=== PATIENT | male | born 1985 | race Caucasian/White ===

== ENCOUNTER 2020-10-08 07:01 | Outpatient (REF) | payer OTHER, SELFPAY ==
[2020-10-08 11:54] LABS: Anion Gap 12 (12-20); Blood Urea Nitrogen 14 mg/dL (9-16); Calcium 9.2 mg/dL (8.4-10.2); Carbon Dioxide 27 mmol/L (22-29); Chloride 106 mmol/L (96-108); Cholesterol 208 mg/dL; Estimated Glomerular Filt Rate > 60; Glucose Fasting 74 mg/dL (60-99); HDL Cholesterol 48 mg/dL; LDL Cholesterol Calculated 145 mg/dl; Potassium 3.8 mmol/L (3.3-5.1); Sodium 141 mmol/L (135-145); Triglycerides 77 mg/dL
== END 2020-10-08 07:02 | disposition home or self-care (01) ==
LOC: HO.HMGCLDS 07:01
PROVIDERS: PCP Internal Medicine; Visit Provider Internal Medicine
DX: Z00.00 Encounter for general adult medical examination without abnormal findings (principal); I10 Essential (primary) hypertension
CPT/HCPCS: 36415; 80048; 80061

== ENCOUNTER 2021-10-14 07:09 | Outpatient (REF) | payer OTHER, SELFPAY ==
[2021-10-14 11:27] LABS: MANUAL DIFF FLAG NO
[2021-10-14 11:37] LABS: Basophils Absolute Auto 0.1 X10*3/uL (0.0-0.2); Basophils Percent Auto 0.7 % (0-2); Eosinophils Absolute Auto 0.1 X10*3/uL (0.0-0.4); Eosinophils Percent Auto 1.6 % (0-4); Hemoglobin 15.8 g/dl (14.0-18.0); Imm Gran Abs Auto 0.03 X10*3/uL (0.00-0.03); Imm Gran Pct Auto 0.4 % (0.0-0.4); Lymphocytes Absolute Auto 2.5 X10*3/uL (1.2-4.9); Mean Corpuscular HGB Conc 33.6 g/dl (31.0-36.0); Mean Corpuscular Hemoglobin 29.4 pg (27.0-33.0); Mean Corpuscular Volume 87.5 fL (80.0-98.0); Mean Platelet Volume 10.9 fL (9.4-12.4); Monocytes Absolute Auto 0.7 X10*3/uL (0.1-1.2); Monocytes Percent Auto 9.6 % (2-11); Neutrophils Absolute Auto 3.5 x10*3/uL (2.0-8.3); Neutrophils Percent Auto 51.7 % (45-73); Platelet Count 235 X10*3/uL (160-400); Red Blood Count 5.37 X10*6/uL (4.60-5.80); Red Cell Distribution Width 12.6 % (11.0-16.0); White Blood Count 6.8 X10*3/uL (4.8-10.8)
[2021-10-14 11:55] LABS: Alanine Aminotransferase 79 U/L (0-40); Anion Gap 11 (12-20); Aspartate Amino Transferase 38 U/L (5-37); Blood Urea Nitrogen 13 mg/dL (9-16); Calcium 9.9 mg/dL (8.4-10.2); Carbon Dioxide 29 mmol/L (22-29); Chloride 102 mmol/L (96-108); Cholesterol 225 mg/dL; Estimated Glomerular Filt Rate > 60; Glucose Fasting 82 mg/dL (60-99); HDL Cholesterol 41 mg/dL; LDL Cholesterol Calculated 125 mg/dl; Potassium 4.1 mmol/L (3.3-5.1); Sodium 138 mmol/L (135-145); Triglycerides 296 mg/dL
[2021-10-14 12:17] LABS: Vitamin D 25-OH Total 15.4 ng/mL (>30)
== END 2021-10-14 07:10 | disposition home or self-care (01) ==
LOC: HO.HMGCLDS 07:09
PROVIDERS: Visit Provider Internal Medicine
DX: Z00.01 Encounter for general adult medical examination with abnormal findings (principal); Z13.220 Encounter for screening for lipoid disorders; Z87.898 Personal history of other specified conditions
CPT/HCPCS: 36415; 80048; 80061; 82306; 84450; 84460; 85025

== ENCOUNTER 2022-06-29 13:59 | Outpatient (REF) | payer OTHER, SELFPAY ==
[2022-06-29 14:25] LABS: Appearance Urine Cloudy; Color Urine Dark Yellow; Glucose Urine UA Negative (Negative); Leukocyte Esterase Urine Negative (Negative); Nitrite Urine Negative (Negative); PH 7.5 (5.0-9.0); UMIC TRIGGER UACC YES; Urine Blood Negative (Negative); Urine Ketones Trace mg/dL (Negative); Urine Protein 30 (1+) mg/dL (Neg-Trace)
[2022-06-29 14:48] LABS: Bacteria Urine None Seen (None Seen); Hyaline Casts Urine 0-2 /LPF (0-2); Specific Gravity - Urine >= 1.030 (1.005-1.025); Squamous Epithelial Cell Urine 0-2 /HPF (0-2); WBC Urine 0-5 /HPF (0-5)
[2022-06-29 16:04] LABS: CT PCR NOT DETECTED (Not Detect.); NG PCR NOT DETECTED (Not Detect.)
== END 2022-06-29 14:00 | disposition home or self-care (01) ==
LOC: HO.LNP 13:59
PROVIDERS: Visit Provider Nurse Practitioner Family
DX: R30.0 Dysuria (principal)
CPT/HCPCS: 0353U; 81001

== ENCOUNTER 2023-04-23 09:35 | Outpatient (AMB) | payer OTHER, SELFPAY ==
--- NOTE | 2023-04-23 10:35 | AM.OFFWIN_ITS ---
Intake Vital Signs 04/23/23 10:36 Height 5 ft 5 in Weight 160 lb BMI 26.6 BP 118/74 Blood Pressure Location Rt brachial Position Sitting Pulse 88 Pulse Source Pulse Oximeter Temp 97.8 F Temp Source Temporal Artery Scan Pulse Oximetry (%) 98 Oxygen Delivery Method Room Air Intake Visit Reasons: EST/feet fungus(lobby) Intake Note: pt is here for c/o feet fungus Patient Tobacco Use Status: Never used Tobacco Allergies pollen extracts [POLLEN] Allergy (Unknown, Verified 04/23/23 10:36) ITCHY EYES Do you need a note to return to daycare/school/sports/work: Yes HPI HPI Comments History of Present Illness Details This is a 38-year-old male who presents to the office today for sick visit. Patient complaining of a rash on his feet. He states he had a similar rash in December 2022 and he was treated for tinea pedis with ketoconazole cream. He states that this cream worked. Patient started to notice a similar rash on his feet about 1 month ago after running and wet shoes. He denies any pruritis. [facility] Medical History Immunization refused Shoulder strain Surgical History No pertinent past surgical history Family History Father Arthralgia Social History Housing: House Alcohol intake: current Patient Tobacco Use Status: Never used Tobacco e-Cigarette/Vaping Use: Never Used service: No Current occupational status: employed Cognitive needs: No Hearing needs: No Vision needs: No Review of Systems Const All systems reviewed & are unremarkable except as noted in HPI and below Reports no additional complaints Eyes Reports no additional complaints ENT Reports no additional complaints Card Reports no additional complaints Resp Reports no additional complaints GI Reports no additional complaints Reports no additional complaints Musc Reports no additional complaints Skin/Breast Reports system reviewed and no additional complaints, except as documented Neuro Reports no additional complaints Psych Reports no additional complaints Endo Reports no additional complaints Charlie/Lymph Reports no additional complaints Aller/Immun Reports no additional complaints Physical Exam Vital Signs: Last Vital Signs Temp 97.8 F 04/23/23 10:36 Pulse 88 11/17/23 10:36 BP 118/74 04/23/23 10:36 Pulse Ox 98 04/23/23 10:36 Oxygen Delivery Method Room Air 04/23/23 10:36 BMI result Body Mass Index 26.6 Const Other: Vital signs reviewed. Constitutional: Non-toxic appearing. No acute distress. Well-developed and well-nourished. HEENT: Normocephalic and atraumatic. Skin: Several annular plaques with scaling on bilateral feet. Neck: Full and painless range of motion. No cervical lymphadenopathy. Cardio: Regular rate and rhythm. Pulmonary: No respiratory distress. No accessory muscle usage. Gastrointestinal: Soft, nontender, and nondistended in all 4 quadrants. Musculoskeletal: Normal range of motion in joints throughout the body. No deformity or other signs of injury. Neuro: Alert and oriented x4. Cranial nerves 2-12 grossly intact. No focal deficits appreciated. Psych: Normal mood and affect. Assessment & Plan Assessment & Plan (1) Tinea pedis: Code(s): B35.3 - Tinea pedis Plan: This is a 38-year-old male with history of tinea pedis presented to the office complaining of a similar rash on bilateral feet after running in what she was. On physical examination there are several annular scaly plaques consistent with tinea pedis/corporis. Patient sent home on ketoconazole 2% cream twice daily x4 weeks. Patient advised to follow-up here for persistent or worsening symptoms. Patient verbalizes understanding and he is in agreement with the plan. Medications: New ketoconazole 2% 1 appl topical BID 30 grams 0RF 4 weeks Coding Level of Care Code Est Pt Level 3 (63441) Diagnoses Tinea pedis B35.3
[2023-04-23 10:36] VITALS: BP 118/74; PULSE 88; TEMP 36.6; O2SAT 98; BMI 26.6
== END 2023-04-23 11:25 | disposition home or self-care (01) ==
PROVIDERS: PCP Internal Medicine; Visit Provider Physician Assistant Medical
DX: B35.3 Tinea pedis (principal)
CPT/HCPCS: 99213

== ENCOUNTER 2023-07-24 12:03 | Outpatient (AMB) | payer OTHER, SELFPAY ==
--- NOTE | 2023-07-24 12:17 | AM.OFFWIN_ITS ---
Intake Vital Signs 07/24/23 12:18 Height 5 ft 5 in Weight 159 lb BMI 26.5 BP 102/70 Blood Pressure Location Lt brachial Position Sitting Pulse 89 Pulse Source Pulse Oximeter Temp 98.0 F Temp Source Oral Pulse Oximetry (%) 96 Oxygen Delivery Method Room Air Intake Visit Reasons: EP ?Foot Fungus Intake Note: Pt is here today c/o bilateral feet rash Patient Tobacco Use Status: Never used Tobacco Allergies pollen extracts [POLLEN] Allergy (Unknown, Verified 07/24/23 12:18) ITCHY EYES HPI HPI Comments History of Present Illness Details 38-year-old male who presents for foot r thalia He states he had a similar rash in December 2022 and he was treated for tinea pedis with ketoconazole cream. He states that this cream worked. Rashes since returned [facility] Medical History Immunization refused Shoulder strain Surgical History No pertinent past surgical history Family History Father Arthralgia Social History Housing: House Alcohol intake: current Patient Tobacco Use Status: Never used Tobacco e-Cigarette/Vaping Use: Never Used service: No Current occupational status: employed Cognitive needs: No Hearing needs: No Vision needs: No Review of Systems Skin/Breast Reports rash Physical Exam Vital Signs: Last Vital Signs Temp 98.0 F 07/24/23 12:18 Pulse 89 07/24/23 12:18 BP 102/70 07/24/23 12:18 Pulse Ox 96 07/24/23 12:18 Oxygen Delivery Method Room Air 07/24/23 12:18 BMI result Body Mass Index 26.5 Const General: cooperative, healthy appearing, no acute distress and alert Orientation/consciousness: patient oriented x3 Limitations: no limitations HEENT Head: Yes normal to inspection Ears: hearing grossly normal bilaterally General nose exam: Normal external nose present Resp Effort & Inspection: normal respiratory effort and able to speak in complete sentences Cardio Rate: regular rate Skin Other: Peeling of the lateral 3rd through 4th toe on the right foot similar on the left foot General skin exam: no rashes or lesions noted Neuro General: patient oriented x3 Extrem General: Yes normal to inspection Assessment & Plan Assessment & Plan (1) Tinea pedis: Code(s): B35.3 - Tinea pedis Qualifiers: Laterality: bilateral Qualified Code(s): B35.3 - Tinea pedis Plan: Ketoconazole cream b.i.d. Medications: New ketoconazole 2% 1 appl topical BID 30 grams 0RF Coding Level of Care Code Est Pt Level 2 (86130) Diagnoses Tinea pedis of both feet B35.3 Laterality: bilateral
[2023-07-24 12:18] VITALS: BP 102/70; PULSE 89; TEMP 36.7; O2SAT 96; BMI 26.5
== END 2023-07-24 12:48 | disposition home or self-care (01) ==
PROVIDERS: PCP Internal Medicine; Visit Provider Physician Assistant
DX: B35.3 Tinea pedis (principal)
CPT/HCPCS: 99051; 99212

== ENCOUNTER 2023-08-11 11:39 | Outpatient (AMB) | payer OTHER, SELFPAY ==
--- NOTE | 2023-08-11 12:19 | MHC.PC.OV ---
Vital Signs 08/11/23 12:21 Height 5 ft 5 in Weight 153 lb BMI 25.5 BP 120/70 Blood Pressure Location Rt brachial Position Sitting Pulse 78 Pulse Source Pulse Oximeter Pulse Oximetry (%) 98 Oxygen Delivery Method Room Air Intake Visit Reasons: Physical Intake Note: Pt is here today for his Annual Physical. Allergies pollen extracts [POLLEN] Allergy (Unknown, Verified 08/11/23 12:48) ITCHY EYES Medication List - Last Reconciled 08/11/23 by Tianna Callejas MD ketoconazole 2% 1 appl topical BID Tobacco use date assessed: 08/11/23 Dental Screening Dental Screen Date: 08/11/23 Did you have a dental visit in the last 12 months?: No Did you have a dental problem in the last 6 months where you did not have access to dental care?: No Was dental information given to patient?: No HPI Physical HPI Details 38-year-old male with history of vitamin-D deficiency, hypertriglyceridemia, and currently being treated for Tinea pedis , here today for his physical exam. Patient states that he has been feeling well, but still having some residual rash, nonpruritic on both feet. He has been diagnosed to have athlete's foot and has been using ketoconazole cream on and off for the last 3 months with almost complete resolution of lesions noted. He has been feeling well with no complaints at present time. However he does not want to have any vaccines nor does he want to get labs drawn on this visit. [facility] Medical History Hypertriglyceridemia Vitamin D deficiency Elevated liver enzymes Immunization refused Surgical History No pertinent past surgical history Family History Father Arthralgia Social History Housing: House Alcohol intake: current Patient Tobacco Use Status: Never used Tobacco e-Cigarette/Vaping Use: Never Used service: No Current occupational status: employed Cognitive needs: No Hearing needs: No Vision needs: No Questionnaire PHQ-9 Over the last 2 weeks, how often have you been bothered by any of the following problems? 1. Little interest or pleasure in doing things: not at all 2. Feeling down, depressed, or hopeless: not at all 3. Trouble falling or staying asleep, or sleeping too much: not at all 4. Feeling tired or having little energy: several days 5. Poor appetite or overeating: several days 6. Feeling bad about yourself - or that you are a failure or have let yourself or your family down: not at all 7. Trouble concentrating on things, such as reading the newspaper or watching television: not at all 8. Moving or speaking so slowly that other people could have noticed. Or the opposite - being so fidgety or restless that you have been moving around a lot more than usual: not at all 9. Thoughts that you would be better off or of hurting yourself in some way: not at all Total score: 2 Depression Screening Interpretation: Negative Depression Screening Done: Yes 19215 - PHQ-9 Billing: Yes Source: Developed by Drs. Bao Esteban, Shonna Houser, Jeremiah Childs and colleagues, with an educational anastasia from [employer]. Thrive Questionnaire Date Thrive assessed: 08/11/23 I am a: Patient What is your living situation today?: I have a steady place to live Within the past 12 months, did the food you bought not last and you didn't have the money to get more?: Never true Within the past 12 months, did you worry whether your food would run out before you got money to buy more?: Never true Do you have trouble paying for medicines?: No Do you have trouble getting transportation to medical appointments?: No Do you have trouble paying your heating and electricity bill?: No Do you have trouble taking care of your child, family member or friend?: No Do you have trouble with day-to-day activities such as bathing, preparing meals, shopping, managing finances, etc.?: No Are you currently unemployed and looking for a job?: No Are you interested in more education?: No THRIVE Score: 0 AUDIT C Alcohol Use Questionnaire (AUDIT-C) 1. How often do you have a drink containing alcohol?: Monthly or less 2. How many drinks containing alcohol do you have on a typical day when you are drinking?: 1 or 2 3. How often do you have six or more drinks on one occasion?: Never Total Score: 1 TIANNA-7 AMB Questionnaire TIANNA-7 Date TIANNA - 7 assessed: 08/11/23 Feeling nervous, anxious, or on edge: 1 = Several days Not being able to stop or control worryin = Not at all Worrying too much about different things: 1 = Several days Trouble relaxin = Not at all Being so restless that it is hard to sit still: 0 = Not at all Becoming easily annoyed or irritable: 0 = Not at all Feeling afraid as if something awful might happen: 3 = Nearly every day Total TIANNA-7 score (0-4 normal; 5-9 mild; 10-14 moderate; 15-21 severe): 5 Source: Developed by Drs. Bao Esteban, Shonna Houser, Jeremiah Childs and colleagues, with an educational anastasia from [employer]. TIANNA-7 Assessment Billing TIANNA-7 Assessment Tool: TIANNA-7 Assessment 41769 Review of Systems Const Denies body aches, Denies fatigue, Denies fever(s), Denies headache(s) and Denies weakness Eyes Denies change in vision ENT Denies dizziness, Denies headache(s) and Denies nasal congestion Card Denies chest pain, Denies lightheadedness, Denies palpitations and Denies dyspnea Resp Denies chest congestion, Denies cough, Denies dyspnea and Denies wheezing GI Denies abdominal pain, Denies change in bowel habits and Denies heartburn Denies dysuria, Denies urinary frequency and Denies urinary urgency Musc Reports no additional complaints Skin/Breast Denies lesions Neuro Denies dizziness, Denies headache(s) and Denies weakness Psych Reports no additional complaints Endo Denies fatigue, Denies polydipsia, Denies polyuria and Denies palpitations Charlie/Lymph Denies easy bruising Aller/Immun Denies seasonal rhinorrhea and Denies wheezing Physical exam (Primary Care) Vital Signs: Last Vital Signs Pulse 78 08/11/23 12:21 BP 120/70 08/11/23 12:21 Pulse Ox 98 08/11/23 12:21 Oxygen Delivery Method Room Air 08/11/23 12:21 BMI result Body Mass Index 25.5 Tobacco/Smoking Status: Tobacco use Status Tobacco use date assessed 08/11/23 08/11/23 12:24 Patient Tobacco Use Status Never used Tobacco 08/11/23 12:20 e-Cigarette/Vaping Use Never Used 08/11/23 12:20 PHQ-9: PHQ-9 Score PHQ-9: Total score 2 08/11/23 23:54 Depression Screening Interpretation: Negative Thrive Assessment: Date of Thrive Assessment Date Thrive assessed 08/11/23 08/11/23 23:54 Const General: comfortable and no acute distress Nutritional Appearance: average body habitus Orientation/consciousness: patient oriented x3 HENMT Head: Yes normocephalic Ears: external ears normal, TM's normal bilaterally and EAC's normal General nose exam: Normal external nose present Face and sinus: Yes face symmetric Mouth: Normal oral and palatal mucosa present, oropharynx normal and moist mucous membranes Teeth and gingiva: poor dentition Eyes General: appearance normal, both eyes and all related structures Neck Neck: Yes normal visual inspection, Yes full ROM, Yes no lymphadenopathy and Yes supple Chest Chest palpation & inspection: normal inspection of the chest Resp Effort & Inspection: normal respiratory effort and able to speak in complete sentences Auscultation: clear to auscultation bilaterally Cardio Rate: regular rate Rhythm: regular rhythm Heart sounds: S1 normal heart sound present, S2 normal heart sound present and Other heart sounds present GI Palpation (GI): Soft to palpation, nontender, no guarding and no masses Auscultation: normal bowel sounds General: Yes no CVA tenderness Male General Exam: Yes normal external exam Back/Spine/Pelvis Back: no CVA tenderness and No back tenderness Skin Other: Erythematous rash on lateral aspect of left foot and on 3rd toe on right Neuro General: patient oriented x3, gait normal, tone normal and no focal motor deficits Cranial nerves: Yes CN's II-XII intact bilaterally Cognition (Neuro): normal cognition Gait exam (Neuro): Normal gait present Extrem General: Yes full ROM, Yes no joint enlargement, Yes no clubbing, cyanosis or edema, Yes no calf tenderness and Yes normal gait Psych Appearance: grossly normal and well kempt Mental Status: mental status grossly normal Speech and movement: Normal speech and movement present Affect: Blunted affect present Assessment and Plan Assessment & Plan (1) Annual visit for general adult medical examination with abnormal findings: Code(s): Z00.01 - Encounter for general adult medical examination with abnormal findings Plan: Patient refused to labs at this time, advised to get dental visit every 6 months and regular eye exams, at least every 2 years. Take adequate calcium in diet and vitamin-D 3 at 2000 IU per cap once a day, in addition to weight-bearing exercises to help maintain good muscle tone and weight control. Instructed to do self-breast testicular exam to check for any mass. Patient does not want to get any vaccine (2) Elevated liver enzymes: Code(s): R74.8 - Abnormal levels of other serum enzymes Plan: Previous labs done a year ago showed mild elevation in his liver enzyme, advised to cut back on his alcohol intake. Declines to repeat labs at present time. (3) Vitamin D deficiency: Code(s): E55.9 - Vitamin D deficiency, unspecified Plan: Previous labs done a year ago showed low vitamin-D level, advised to start taking [id number] vitamin-D 3 at 2000 units once a day. 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, to remove residual fungus, and advised to spray shoes with Lotrimin antifungal spray (5) Hypertriglyceridemia: Code(s): E78.1 - Pure hyperglyceridemia Plan: Advised to follow a low-cholesterol diet, and get regular exercise (6) Immunization refused: Code(s): Z28.21 - Immunization not carried out because of patient refusal Coding Level of Care Code Est Pt Prev Care 18-39y(84130) Diagnoses Annual visit for general adult medical examination with abnormal findings Z00.01 Elevated liver enzymes R74.8 Vitamin D deficiency E55.9 Tinea pedis of both feet B35.3 Laterality: bilateral Hypertriglyceridemia E78.1 Immunization refused Z28.21 Additional Codes TIANNA-7 Assessment Billing - TIANNA-7 Assessment Tool: TIANNA-7 Assessment 86198 ([id number])
[2023-08-11 12:21] VITALS: BP 120/70; PULSE 78; O2SAT 98; BMI 25.5
== END 2023-08-11 14:13 | disposition home or self-care (01) ==
PROVIDERS: PCP Internal Medicine; Visit Provider Internal Medicine
DX: Z00.00 Encounter for general adult medical examination without abnormal findings (principal); R74.8 Abnormal levels of other serum enzymes; E55.9 Vitamin D deficiency, unspecified; B35.3 Tinea pedis; E78.1 Pure hyperglyceridemia; Z28.21 Immunization not carried out because of patient refusal
CPT/HCPCS: 99395

== ENCOUNTER 2024-05-02 10:11 | Outpatient (AMB) | payer BC, SELFPAY ==
--- NOTE | 2024-05-02 10:29 | MHC.OFFWIV ---
Intake Vital Signs 05/02/24 10:30 Weight 157 lb BP 130/80 Blood Pressure Location Rt brachial Position Sitting Pulse 90 Pulse Source Pulse Oximeter Pulse Oximetry (%) 98 Oxygen Delivery Method Room Air Intake Visit Reasons: EP-upper back itching Intake Note: Patient here for upper back spots that have bee inflammed for about 2 weeks. Patient Tobacco Use Status: Never used Tobacco Allergies pollen extracts [POLLEN] Allergy (Unknown, Verified 05/02/24 10:31) ITCHY EYES Do you need a note to return to daycare/school/sports/work: No HPI HPI Comments History of Present Illness Details 39 y/o male patient who presents to the walk in clinic with c/o rash on his back for few weeks now. Pt describes the rash as itchy. Pt has been applying a Steroid cream which has helped with itching. Pt was evaluated 2021 by his PCP for similar complain and was referred to Dermatology, but patient never got the appointment. [facility] Medical History Hypertriglyceridemia Vitamin D deficiency Elevated liver enzymes Immunization refused Surgical History No pertinent past surgical history Family History Father Arthralgia Social History Housing: House Alcohol intake: current Patient Tobacco Use Status: Never used Tobacco e-Cigarette/Vaping Use: Never Used service: No Current occupational status: employed Cognitive needs: No Hearing needs: No Vision needs: No Review of Systems Const All systems reviewed & are unremarkable except as noted in HPI and below Physical Exam Vital Signs: Last Vital Signs Pulse 90 05/02/24 10:30 BP 130/80 05/02/24 10:30 Pulse Ox 98 05/02/24 10:30 Oxygen Delivery Method Room Air 05/02/24 10:30 Const General: cooperative and no acute distress Orientation/consciousness: patient oriented x3 Limitations: language barrier Skin General skin exam: crusts, dry skin and erythema Full body images: 1. Small 2 lesions, crusting with erythematous edges. 2. Small 2 lesions, crusting with erythematous edges. Neuro General: patient oriented x3, gait normal and moves all extremities Psych Speech and movement: Normal speech and movement present Assessment & Plan Assessment & Plan (1) Rash and nonspecific skin eruption: Code(s): R21 - Rash and other nonspecific skin eruption Plan: Placed referral to [facility]. I also advised Pt to call them and schedule an appointment. Orders: Referrals Dermatology Referral R21 - Rash and other nonspecific skin eruption Coding Level of Care Code Est Pt Level 3 (42939) Diagnoses Rash and nonspecific skin eruption R21 Time Spent (min) 15
[2024-05-02 10:30] VITALS: BP 130/80; PULSE 90; O2SAT 98
== END 2024-05-02 13:33 | disposition home or self-care (01) ==
PROVIDERS: PCP Internal Medicine; Visit Provider Nurse Practitioner Family
DX: R21 Rash and other nonspecific skin eruption (principal)

== ENCOUNTER 2024-06-02 14:11 | Outpatient (AMB) | payer BC, SELFPAY ==
--- NOTE | 2024-06-02 15:19 | AM.OFFWIN_ITS ---
Intake Vital Signs 06/02/24 15:24 Weight 71.668 kg BP 140/100 H Blood Pressure Location Rt brachial Position Sitting Pulse 71 Pulse Source Pulse Oximeter Pulse Oximetry (%) 94 Oxygen Delivery Method Room Air Intake Visit Reasons: EP ?infection Intake Note: Patient here for infection on penis that has been present since Wednesday. Last sexually active in march. Patient Tobacco Use Status: Never used Tobacco Allergies pollen extracts [POLLEN] Allergy (Unknown, Verified 06/02/24 15:24) ITCHY EYES Do you need a note to return to daycare/school/sports/work: No HPI HPI Comments History of Present Illness Details 39 year old male presents w/ burning w/ urination, urinary frequency, urgency X few weeks. Had a rash on his penis but reports using a potassium cream that got rid of the rash. Some concern for STD last sexually active in march. Denies abd pain, n/v/d, fevers, chills. 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 [facility] [place] denies rash or lesiosn at this time no indication for sensative exam Plan- NGCT and UA will also test for syphillis due to recent rash [facility] Medical History Encounter for assessment of sexually transmitted disease exposure Hypertriglyceridemia Vitamin D deficiency Elevated liver enzymes Immunization refused Surgical History No pertinent past surgical history Family History Father Arthralgia Social History Housing: House Alcohol intake: current Patient Tobacco Use Status: Never used Tobacco e-Cigarette/Vaping Use: Never Used service: No Current occupational status: employed Cognitive needs: No Hearing needs: No Vision needs: No Review of Systems Const All systems reviewed & are unremarkable except as noted in HPI and below Physical Exam Vital Signs: Last Vital Signs Pulse 71 06/02/24 15:24 BP 140/100 H 06/02/24 15:24 Pulse Ox 94 06/02/24 15:24 Oxygen Delivery Method Room Air 12/27/24 15:24 vss Appearance: Alert.? Oriented X3.? No acute distress.? Head: Normocephalic, atraumatic, no step-offs or deformities Eyes: Pupils equal, round and reactive to light.? CVS: Normal heart rate and rhythm.? Pulses normal.? Respiratory: No respiratory distress.? Breath sounds normal.? Abdomen: Soft and nontender.? Skin: Skin warm and dry.? Normal skin color.? Normal skin turgor.? Extremities: No lower extremity edema.? No calf ttp. 5/5 strength to bilateral upper and lower extremities Back: No midline tenderness, no C-spine tenderness, full range of motion, no CVA tenderness bilaterally Neuro: Oriented X 3.? No motor deficit.? No sensory deficit. CN 2-12 intact Sensative exam: deffered Assessment & Plan Assessment & Plan (1) Screen for STD (sexually transmitted disease): Code(s): Z11.3 - Encounter for screening for infections with a predominantly sexual mode of transmission (2) Dysuria: Code(s): R30.0 - Dysuria Plan Take your medications as prescribed. If you were prescribed antibiotics today, it is important that you take your medication to their entirety, do not skip any doses, do not finish them early. Follow-up with your primary care provider this week. Return to the emergency department with new or worsening symptoms. In case of emergency call 911 Orders: Orders AMB Ceftriaxone Injection Today Z20.2 - Contact with and (suspected) exposure to infections with a predominantly sexual mode of transmission Syphilis Screen Today Z11.3 - Encounter for screening for infections with a predominantly sexual mode of transmission CT NG by PCR Today Z20.2 - Contact with and (suspected) exposure to infections with a predominantly sexual mode of transmission Medications: New ceftriaxone 500 mg IM ONCE 1 ea 0RF Z20.2 - Contact with and (suspected) exposure to infections with a predominantly sexual mode of transmission doxycycline hyclate 100 mg PO BID 7 days 14 caps 0RF Coding Level of Care Code Est Pt Level 3 (44540) Diagnoses Screen for STD (sexually transmitted disease) Z11.3 Dysuria R30.0
[2024-06-02 15:24] VITALS: BP 140/100; PULSE 71; O2SAT 94
== END 2024-06-02 15:40 | disposition home or self-care (01) ==
PROVIDERS: PCP Internal Medicine; Visit Provider Physician Assistant
DX: R30.0 Dysuria (principal); Z11.3 Encounter for screening for infections with a predominantly sexual mode of transmission; Z20.2 Contact with and (suspected) exposure to infections with a predominantly sexual mode of transmission

== ENCOUNTER 2024-06-02 14:11 | Outpatient (REF) | payer BC, SELFPAY ==
[2024-06-03 14:49] LABS: CT PCR NOT DETECTED (Not Detect.); NG PCR NOT DETECTED (Not Detect.)
== END 2024-06-02 14:12 | disposition home or self-care (01) ==
LOC: HO.LNP 14:11
PROVIDERS: PCP Internal Medicine; Visit Provider Physician Assistant
DX: R30.0 Dysuria (principal); R35.0 Frequency of micturition; Z20.2 Contact with and (suspected) exposure to infections with a predominantly sexual mode of transmission
CPT/HCPCS: 81003; 87491; 87591; 96372; J0696

== ENCOUNTER 2024-06-03 12:55 | Outpatient (REF) | payer BC, SELFPAY | END 2024-06-03 12:56 | disposition home or self-care (01) | LOC: HO.LAB 12:55 | PROVIDERS: Visit Provider Physician Assistant | DX: Z13.89 Encounter for screening for other disorder (principal) ==

== ENCOUNTER 2024-06-28 10:06 | Outpatient (REF) | payer BC, SELFPAY ==
--- NOTE | ~2024-06-28 | XR_ITS ---
EXAMINATION: XR RIBS, RIGHT. Chest PA. 5 views. CLINICAL INFORMATION: W19.XXXA - Unspecified fall, initial encounter COMPARISON: None available. TECHNIQUE: 5 views of the right ribs were obtained. FINDINGS: The lungs are well-expanded and clear of acute process. The heart size and pulmonary vascularity is normal. Multiple views of right ribs reveal no visible fracture or bony abnormality. There is no pleural effusion or pneumothorax. XR/XR ribs RT min 3V w CXR1V IMPRESSION: Unremarkable chest exam. There is no visible right rib fractures seen. Electronically signed by: Jim Campa MD 06/28/2024 11:39 AM [facility]
== END 2024-06-28 10:07 | disposition home or self-care (01) ==
LOC: HO.HMGCX 10:06
PROVIDERS: PCP Internal Medicine; Visit Provider Physician Assistant
DX: R07.81 Pleurodynia (principal); W19.XXXA Unspecified fall, initial encounter
CPT/HCPCS: 71101

== ENCOUNTER 2024-06-28 10:06 | Outpatient (AMB) | payer BC, SELFPAY ==
--- NOTE | 2024-06-28 10:24 | AM.OFFWIN_ITS ---
Intake Vital Signs 06/28/24 10:26 Weight 157 lb BP 122/90 H Blood Pressure Location Rt brachial Position Sitting Pulse 89 Pulse Source Pulse Oximeter Pulse Oximetry (%) 97 Oxygen Delivery Method Room Air Intake Visit Reasons: EP fall, rib pain Intake Note: Patient here for right rib pain after a fall at work yesterday. Patient Tobacco Use Status: Never used Tobacco Allergies pollen extracts [POLLEN] Allergy (Unknown, Verified 06/28/24 10:26) ITCHY EYES Do you need a note to return to daycare/school/sports/work: Yes HPI HPI Comments History of Present Illness Details History of Present Illness - The patient is a 39-year-old male pres enting with a fall on the right side yesterday at work on his right side. - The incident occurred when the patient slipped on ice, and he heard a crunch sound near his right side ribs suggestive of a fracture. - Reports increased pain upon deep breat matt, but no severe respiratory issues are noted. - Tenderness is specifically noted on th e right side where the impact occurred. - Has used ice without much relief. Physical Exam General: Cooperative, healthy appearing, comfortable, no acute distress and well developed Orientation: Patient oriented x3 Limitations: No limitations Head: Normal to inspection Ears: Hearing grossly normal bilaterally Nose: Normal external nose present Face and sinus: Normal facial exam Eyes: Appearance normal, both eyes and all related structures Neck: Normal visual inspection and Yes full ROM Chest: TTP right sided lateral ribs, mid axillary line Respiratory: Normal respiratory effort and able to speak in complete sentences. Clear to auscultation bilaterally Cardiovascular: Regular rate and rhythm. Normal S1 and S2 Skin: No rashes or lesions noted Neuro: Patient oriented x3 Extremities: Normal to inspection [facility] Medical History Encounter for assessment of sexually transmitted disease exposure Hypertriglyceridemia Vitamin D deficiency Elevated liver enzymes Immunization refused Surgical History No pertinent past surgical history Family History Father Arthralgia Social History Housing: House Alcohol intake: current Patient Tobacco Use Status: Never used Tobacco e-Cigarette/Vaping Use: Never Used service: No Current occupational status: employed Cognitive needs: No Hearing needs: No Vision needs: No Review of Systems Const All systems reviewed & are unremarkable except as noted in HPI and below Physical Exam Vital Signs: Last Vital Signs Pulse 89 06/28/24 10:26 BP 122/90 H 06/28/24 10:26 Pulse Ox 97 06/28/24 10:26 Oxygen Delivery Method Room Air 06/28/24 10:26 Assessment & Plan Assessment & Plan (1) Fall: Code(s): W19.XXXA - Unspecified fall, initial encounter Qualifiers: Encounter type: initial encounter Qualified Code(s): W19.XXXA - Unspecified fall, initial encounter Plan: Plan An x-ray has been ordered to evaluate a potential rib fracture, ensuring that the chest is also assessed to exclude any complications. Pain management involves the use of NSAIDs, lidocaine patches, and topical analgesics to help manage discomfort. It was explained that while these interventions might offer some relief, the healing process would require time and symptoms will gradually improve. Patient was informed and verbally consented to the use of an ambient scribe for clinic note documentation during this visit. (2) Rib pain on right side: Code(s): R07.81 - Pleurodynia Plan: as above Orders: Orders XR ribs RT min 3V w CXR1V Today R07.81 - Pleurodynia, W19.XXXA - Unspecified fall, initial encounter Coding Level of Care Code Est Pt Level 4 (48710) Diagnoses Fall, initial encounter W19.XXXA Encounter type: initial encounter Rib pain on right side R07.81
[2024-06-28 10:26] VITALS: BP 122/90; PULSE 89; O2SAT 97
== END 2024-06-28 10:54 | disposition home or self-care (01) ==
PROVIDERS: PCP Internal Medicine; Visit Provider Physician Assistant
DX: R07.81 Pleurodynia (principal); W19.XXXA Unspecified fall, initial encounter

== ENCOUNTER → 2024-06-28 10:48 | Outpatient (BNV) | payer BC, SELFPAY | PROVIDERS: PCP Internal Medicine; Visit Provider Radiology Diagnostic Radiology | DX: R07.81 Pleurodynia (principal); W19.XXXA Unspecified fall, initial encounter | CPT/HCPCS: 71101 ==

== ENCOUNTER 2024-08-16 08:04 | Outpatient (AMB) | payer BC, SELFPAY ==
--- NOTE | 2024-08-16 08:28 | A.OFFPC_ITS ---
Vital Signs 08/16/24 08:47 Height 5 ft 7 in Weight 154 lb BMI 24.1 BP 122/82 Blood Pressure Location Rt brachial Position Sitting Respiration 16 Pulse 98 Pulse Source Pulse Oximeter Temp 98.1 F Temp Source Oral Pulse Oximetry (%) 98 Oxygen Delivery Method Room Air Intake Visit Reasons: PE Intake Note: Pt is here today for his PE Allergies pollen extracts [POLLEN] Allergy (Unknown, Verified 08/16/24 09:08) ITCHY EYES Medication List - Last Reconciled 08/16/24 by Tianna Callejas MD No Known Home Meds Tobacco use date assessed: 08/16/24 Dental Screening Dental Screen Date: 08/16/24 Did you have a dental visit in the last 12 months?: No Did you have a dental problem in the last 6 months where you did not have access to dental care?: No Was dental information given to patient?: Patient has dentist HPI PE HPI Details 39-year-old male, with history of hypert riglyceridemia, with elevated liver enzymes currently not on any medication, history of vitamin-D deficiency, here today for his physical exam. He has been refusing recommended vaccines in the past.. Has history of tinea pedis, did not use the prescribed cream given to him on last visit, but instead has been using tea tree oil which she states has been helping. He also has been l washing his shoes and drying them off well prevent further recurrence of fungal infection. Requesting a referral to a video recorder mechanic for routine skin check and to have skin tags on his left cheek removed. [facility] Medical History (Updated 08/16/24 @ 09:12 by Tianna Callejas MD) Hypertriglyceridemia Vitamin D deficiency Elevated liver enzymes Immunization refused Surgical History No pertinent past surgical history Family History Father Arthralgia Social History Housing: House Alcohol intake: current Patient Tobacco Use Status: Never used Tobacco e-Cigarette/Vaping Use: Never Used service: No Current occupational status: employed Cognitive needs: No Hearing needs: No Vision needs: No Questionnaire PHQ-9 Over the last 2 weeks, how often have you been bothered by any of the following problems? 1. Little interest or pleasure in doing things: not at all 2. Feeling down, depressed, or hopeless: not at all 3. Trouble falling or staying asleep, or sleeping too much: not at all 4. Feeling tired or having little energy: nearly every day 5. Poor appetite or overeating: not at all 6. Feeling bad about yourself - or that you are a failure or have let yourself or your family down: several days 7. Trouble concentrating on things, such as reading the newspaper or watching television: not at all 8. Moving or speaking so slowly that other people could have noticed. Or the opposite - being so fidgety or restless that you have been moving around a lot more than usual: not at all 9. Thoughts that you would be better off or of hurting yourself in some way: not at all Total score: 4 Depression Screening Interpretation: Negative Depression Screening Done: Yes 42671 - PHQ-9 Billing: Yes Source: Developed by Drs. Bao Esteban, Shonna Houser, Jeremiah Childs and colleagues, with an educational anastasia from [employer]. Thrive Questionnaire Date Thrive assessed: 08/16/24 I am a: Patient What is your living situation today?: I have a steady place to live Within the past 12 months, did the food you bought not last and you didn't have the money to get more?: Sometimes True Within the past 12 months, did you worry whether your food would run out before you got money to buy more?: Sometimes True Do you have trouble paying for medicines?: No Do you have trouble getting transportation to medical appointments?: No Do you have trouble paying your heating and electricity bill?: No Do you have trouble taking care of your child, family member or friend?: Yes Do you have trouble with day-to-day activities such as bathing, preparing meals, shopping, managing finances, etc.?: No Are you currently unemployed and looking for a job?: No Are you interested in more education?: No Please select the resources that you would like help with: Daily support and None Currently or been in a relationship where the following occur: I choose not to answer THRIVE Score: 2 AUDIT C Alcohol Use Questionnaire (AUDIT-C) 1. How often do you have a drink containing alcohol?: 2-3 times a week 2. How many drinks containing alcohol do you have on a typical day when you are drinking?: 1 or 2 3. How often do you have six or more drinks on one occasion?: Never Total Score: 3 TIANNA-7 AMB Questionnaire TIANNA-7 Date TIANNA - 7 assessed: 08/16/24 Feeling nervous, anxious, or on edge: 1 = Several days Not being able to stop or control worryin = Not at all Worrying too much about different things: 1 = Several days Trouble relaxin = Several days Being so restless that it is hard to sit still: 0 = Not at all Becoming easily annoyed or irritable: 1 = Several days Feeling afraid as if something awful might happen: 0 = Not at all Total TIANNA-7 score (0-4 normal; 5-9 mild; 10-14 moderate; 15-21 severe): 4 Source: Developed by Drs. Bao Esteban, Shonna Houser, Jeremiah Childs and colleagues, with an educational anastasia from [employer]. TIANNA-7 Assessment Billing TIANNA-7 Assessment Tool: TIANNA-7 Assessment 48748 Review of Systems Const Denies body aches, Denies fatigue, Denies fever(s), Denies headache(s) and Denies weakness Eyes Denies change in vision ENT Denies dizziness, Denies headache(s) and Denies nasal congestion Card Denies chest pain, Denies lightheadedness, Denies palpitations and Denies dyspnea Resp Denies chest congestion, Denies cough, Denies dyspnea and Denies wheezing GI Denies abdominal pain, Denies change in bowel habits and Denies heartburn Denies dysuria, Denies urinary frequency and Denies urinary urgency Musc Reports no additional complaints Skin/Breast Reports as per HPI Neuro Denies dizziness, Denies headache(s) and Denies weakness Psych Reports no additional complaints Endo Denies fatigue, Denies polydipsia, Denies polyuria and Denies palpitations Charlie/Lymph Denies easy bruising Aller/Immun Denies seasonal rhinorrhea and Denies wheezing Physical exam (Primary Care) Vital Signs: Last Vital Signs Temp 98.1 F 08/16/24 08:47 Pulse 98 08/16/24 08:47 Resp 16 03/12/25 08:47 BP 122/82 08/16/24 08:47 Pulse Ox 98 08/16/24 08:47 Oxygen Delivery Method Room Air 08/16/24 08:47 BMI result Body Mass Index 24.1 Tobacco/Smoking Status: Tobacco use Status Tobacco use date assessed 08/16/24 08/16/24 08:30 Patient Tobacco Use Status Never used Tobacco 08/16/24 08:30 e-Cigarette/Vaping Use Never Used 08/16/24 08:30 PHQ-9: PHQ-9 Score PHQ-9: Total score 4 08/16/24 09:40 Depression Screening Interpretation: Negative Thrive Assessment: Date of Thrive Assessment Date Thrive assessed 08/16/24 08/16/24 08:51 Currently or been in a relationship where the following occur: I choose not to answer Advance Care Planning discussion: Declined forms Date of discussion: 08/16/24 Who was present: Patient Forms completed: None (Patient does not want to fill out a healthcare proxy, states that he does not trust any of his friends) Const General: comfortable and no acute distress Nutritional Appearance: average body habitus Orientation/consciousness: patient oriented x3 HENMT Head: Yes normocephalic Ears: external ears normal, TM's normal bilaterally and EAC's normal General nose exam: Normal external nose present Face and sinus: Yes face symmetric Mouth: Normal oral and palatal mucosa present, oropharynx normal and moist mucous membranes Teeth and gingiva: poor dentition Eyes General: appearance normal, both eyes and all related structures Neck Neck: Yes normal visual inspection, Yes full ROM, Yes no lymphadenopathy and Yes supple Chest Chest palpation & inspection: normal inspection of the chest Resp Effort & Inspection: normal respiratory effort and able to speak in complete sentences Auscultation: clear to auscultation bilaterally Cardio Rate: regular rate Rhythm: regular rhythm Heart sounds: S1 normal heart sound present, S2 normal heart sound present and Other heart sounds present GI Palpation (GI): Soft to palpation, nontender, no guarding and no masses Auscultation: normal bowel sounds General: Yes no CVA tenderness Male General Exam: Yes normal external exam Back/Spine/Pelvis Back: no CVA tenderness and No back tenderness Skin Other: Tiny raised lesions on left cheek Neuro General: patient oriented x3, gait normal, tone normal and no focal motor deficits Cranial nerves: Yes CN's II-XII intact bilaterally Cognition (Neuro): normal cognition Gait exam (Neuro): Normal gait present Extrem General: Yes full ROM, Yes no joint enlargement, Yes no clubbing, cyanosis or edema, Yes no calf tenderness and Yes normal gait Psych Appearance: grossly normal and well kempt Mental Status: mental status grossly normal Speech and movement: Normal speech and movement present Affect: Blunted affect present Coding Level of Care Code Est Pt Prev Care 18-39y([id number]) Diagnoses Annual visit for general adult medical examination with abnormal findings Z00. Hypertriglyceridemia E78.1 Immunization refused Z28.21 Elevated liver enzymes R74.8 Vitamin D deficiency E55.9 Skin lesion of face L98.9 Additional Codes TIANNA-7 Assessment Billing - TIANNA-7 Assessment Tool: TIANNA-7 Assessment 56554 ([id number]) PHQ-9 - 51946 - PHQ-9 Billing: Yes ([id number]) Vital Signs *Quality* - Advance Care Planning discussion: Declined forms ([id number]) Assessment & Plan Assessment & Plan (1) Annual visit for general adult medical examination with abnormal findings: Code(s): Z00. - Encounter for general adult medical examination with abnormal findings Plan: Will check appropriate labs. Already has an appointment to see his dentist for cleaning later this month. Advised to get regular eye exams, at least every 2 years. Take adequate calcium in diet and vitamin-D 3 at 2000 IU per cap once a day, in addition to weight-bearing exercises to help maintain good muscle tone and weight control. Instructed to do self-testicular exam check for any mass. Patient does not want to get any recommended vaccines. (2) Hypertriglyceridemia: Code(s): E78.1 - Pure hyperglyceridemia Category: Medical Plan: Fasting lipid panel ordered today , reinforced importance of adhering to a low- cholesterol diet and get regular exercise, at least 30 minutes 3 to 4 times a week. Advised patient to make healthy food choices, eat more fruits, vegetabl es, whole grains, wild caught fish and low-fat dairy. Limit amount of alcohol intake, meat and fried or fatty food products, as well as processed foods and fast foods. (3) Immunization refused: Code(s): Z28.21 - Immunization not carried out because of patient refusal Category: Medical Plan: Patient declined all recommended vaccines (4) Elevated liver enzymes: Code(s): R74.8 - Abnormal levels of other serum enzymes Category: Medical Plan: Advised to cut back or avoid alcohol intake repeat liver enzymes ordered (5) Vitamin D deficiency: Code(s): E55.9 - Vitamin D deficiency, unspecified Category: Medical Plan: Will check vitamin-D level (6) Skin lesion of face: Code(s): L98.9 - Disorder of the skin and subcutaneous tissue, unspecified Plan: , referred to [facility] Orders: Orders Comprehensive [place]. Panel Fast Today E55.9 - Vitamin D deficiency, unspecified, E78.1 - Pure hyperglyceridemia, R74.8 - Abnormal levels of other serum enzymes, Z00.01 - Encounter for general adult medical examination with abnormal findings, Z28.21 - Immunization not carried out because of patient refusal Lipid Panel Today E55.9 - Vitamin D deficiency, unspecified, E78.1 - Pure hyperglyceridemia, R74.8 - Abnormal levels of other serum enzymes, Z00.01 - Encounter for general adult medical examination with abnormal findings, Z28.21 - Immunization not carried out because of patient refusal Vitamin D 25-OH Total Today E55.9 - Vitamin D deficiency, unspecified, E78.1 - Pure hyperglyceridemia, R74.8 - Abnormal levels of other serum enzymes, Z00.01 - Encounter for general adult medical examination with abnormal findings, Z28.21 - Immunization not carried out because of patient refusal Referrals Dermatology Referral L98.9 - Disorder of the skin and subcutaneous tissue, unspecified
[2024-08-16 08:47] VITALS: BP 122/82; PULSE 98; RESP 16; TEMP 36.7; O2SAT 98; BMI 24.1
== END 2024-08-16 09:28 | disposition home or self-care (01) ==
LOC: HO.HMCC 08:05
PROVIDERS: PCP Internal Medicine; Visit Provider Internal Medicine
DX: Z00.01 Encounter for general adult medical examination with abnormal findings (principal); E78.1 Pure hyperglyceridemia; Z28.21 Immunization not carried out because of patient refusal; R74.8 Abnormal levels of other serum enzymes; E55.9 Vitamin D deficiency, unspecified; L98.9 Disorder of the skin and subcutaneous tissue, unspecified; Z00.00 Encounter for general adult medical examination without abnormal findings

== ENCOUNTER → 2024-08-16 08:04 | Outpatient (BNVA) | payer BC, SELFPAY | PROVIDERS: PCP Internal Medicine; Visit Provider Internal Medicine | DX: Z00.01 Encounter for general adult medical examination with abnormal findings (principal); E78.1 Pure hyperglyceridemia; R74.8 Abnormal levels of other serum enzymes; E55.9 Vitamin D deficiency, unspecified; L98.9 Disorder of the skin and subcutaneous tissue, unspecified; Z28.21 Immunization not carried out because of patient refusal | CPT/HCPCS: 96127 ==

== ENCOUNTER 2024-08-17 08:09 | Outpatient (REF) | payer BC, SELFPAY ==
[2024-08-17 10:37] LABS: Alanine Aminotransferase 48 U/L (0-40); Albumin Level 4.4 g/dL (3.5-5.0); Alkaline Phosphatase 68 U/L (39-117); Anion Gap 12 (12-20); Aspartate Amino Transferase 30 U/L (5-37); Bilirubin Total 0.6 mg/dL (0.0-1.0); Blood Urea Nitrogen 23 mg/dL (9-16); Calcium 9.5 mg/dL (8.4-10.2); Carbon Dioxide 26 mmol/L (22-29); Chloride 107 mmol/L (96-108); Cholesterol 225 mg/dL (<200); Estimated Glomerular Filt Rate > 60; Glucose Fasting 84 mg/dL (60-99); HDL Cholesterol 46 mg/dL (>40); LDL Cholesterol Calculated 154 mg/dL (<100); Sodium 141 mmol/L (135-145); Triglycerides 127 mg/dL (<150)
[2024-08-17 10:43] LABS: Syphilis Screen Nonreactive (Nonreactive)
[2024-08-17 10:48] LABS: Vitamin D 25-OH Total 30.6 ng/mL (>30)
== END 2024-08-17 08:10 | disposition home or self-care (01) ==
LOC: HO.HMGCLDS 08:09
PROVIDERS: Physician Assistant; PCP Internal Medicine; Visit Provider Internal Medicine
DX: Z00.01 Encounter for general adult medical examination with abnormal findings (principal); E78.1 Pure hyperglyceridemia; E55.9 Vitamin D deficiency, unspecified; R74.8 Abnormal levels of other serum enzymes; Z20.2 Contact with and (suspected) exposure to infections with a predominantly sexual mode of transmission
CPT/HCPCS: 36415; 80053; 80061; 82306; 86780

== ENCOUNTER 2025-03-21 09:25 | Outpatient (AMB) | payer BC, SELFPAY ==
[2025-03-21 09:48] VITALS: BP 116/80; PULSE 67; TEMP 36.9; O2SAT 96; BMI 25.4
--- NOTE | 2025-03-21 09:48 | MHC.OFFWIV ---
Intake Vital Signs 03/21/25 09:48 Height 5 ft 7 in Weight 162 lb BMI 25.4 BP 116/80 Blood Pressure Location Rt brachial Position Sitting Pulse 67 Pulse Source Pulse Oximeter Temp 98.4 F Temp Source Oral Pulse Oximetry (%) 96 Oxygen Delivery Method Room Air Intake Visit Reasons: EP-poison rose Intake Note: pt presents with poison rose rash to right lower leg x2 days Patient Tobacco Use Status: Never used Tobacco Allergies pollen extracts (POLLEN) Allergy (Unknown, Verified 03/21/25 09:50) ITCHY EYES Medication List - Last Reconciled 03/21/25 by Shaina Mack MD No Known Home Meds Do you need a note to return to daycare/school/sports/work: No HPI EP-poison rose HPI Details History of Present Illness The patient is a 39-year-old male presenting with eczema. Eczema: - The patient reports a rash located on the right leg, described as an eczematous patch, measuring approximately 1-inch by 1-inch. - The rash is pruritic in nature. - The patient notes that the rash gets inflamed every now and then - Symptom chronology indicates that the rash disappears for extended periods but recurs intermittently in different locations. - The patient has been using topical betamethasone 0.05% cream for management. Problem List - Eczema Plan - Prescribe a refill of betamethasone 0.05% cream for continued management of eczema on the right leg. The patient has been instructed to use the cream for up to a week, ceasing application once the rash resolves. - Discussed potential triggers or exacerbating factors, such as certain foods, but emphasized that eczema might primarily be due to the patient's skin condition or immune system response. - Encourage monitoring for patterns associated with eczema flare-ups, considering avoidance of identified triggers if any. Review of Systems Negative except HPI Physical Exam General: No acute distress HEENT: No acute findings Neck: Supple Extremities: Rash on right leg, eczematous patch, small 1-inch x 1-inch, pruritic [employer]: Alert awake oriented x3 Skin: Normal turgor [facility] Medical History Hypertriglyceridemia Vitamin D deficiency Elevated liver enzymes Immunization refused Surgical History No pertinent past surgical history Family History Father Arthralgia Social History Housing: House Alcohol intake: current Patient Tobacco Use Status: Never used Tobacco e-Cigarette/Vaping Use: Never Used service: No Current occupational status: employed Cognitive needs: No Hearing needs: No Vision needs: No Physical Exam Vital Signs: Last Vital Signs Temp 98.4 F 03/21/25 09:48 Pulse 67 03/21/25 09:48 BP 116/80 03/21/25 09:48 Pulse Ox 96 03/21/25 09:48 Oxygen Delivery Method Room Air 03/21/25 09:48 BMI result Body Mass Index 25.4 Assessment & Plan Assessment & Plan (1) Eczema of lower extremity: Code(s): L30.9 - Dermatitis, unspecified Plan Eczema: - The patient reports a rash located on the right leg, described as an eczematous patch, measuring approximately 1-inch by 1-inch. - The rash is pruritic in nature. - The patient notes that the rash gets inflamed every now and then - Symptom chronology indicates that the rash disappears for extended periods but recurs intermittently in different locations. - The patient has been using topical betamethasone 0.05% cream for management. Problem List - Eczema Plan - Prescribe a refill of betamethasone 0.05% cream for continued management of eczema on the right leg. The patient has been instructed to use the cream for up to a week, ceasing application once the rash resolves. - Discussed potential triggers or exacerbating factors, such as certain foods, but emphasized that eczema might primarily be due to the patient's skin condition or immune system response. - Encourage monitoring for patterns associated with eczema flare-ups, considering avoidance of identified triggers if any. Medications: New betamethasone dipropionate 0.05% 1 appl topical DAILY PRN 45 grams 1RF skin irritation 30 days Coding Level of Care Code Est Pt Level 3 (22533) Diagnoses Eczema of lower extremity L30.9
== END 2025-03-21 10:09 | disposition home or self-care (01) ==
PROVIDERS: PCP Internal Medicine; Visit Provider Internal Medicine
DX: L30.9 Dermatitis, unspecified (principal)